=== PATIENT | male | born 1965 | race Caucasian/White ===

== ENCOUNTER 2022-04-28 15:32 | Emergency (ER) | payer OTHER ==
[~2022-04-28] VITALS: Ht 167.6 cm; Wt 59.4 kg
[2022-04-28 15:50] VITALS: BP 104/65
--- NOTE | 2022-04-28 17:05 | NUR ---
56y/o male presents to ED with c/o right leg pain [id number]. Pt reports picking up a big box two weeks ago and feeling pain to the right calf shortly after, 8/10 constant cramping like pain that radiates to right hamstring. Pt reports taking advil and tylenol with mild relief. Upon assessment, no swelling or redness noted to right leg. Pt changed into gown, bed set at lowest position, side rails x1.
[2022-04-28 17:08] LABS: BASOPHILS % (AUTO) 0.7 % (0.0-2.0); EOSINOPHILS # (AUTO) 0.1 K/uL (0-0.4); EOSINOPHILS % (AUTO) 2.8 % (0.0-4.0); HEMATOCRIT 40.2 % (36-52); HEMOGLOBIN 13.7 g/dL (12.0-18.0); LYMPHOCYTES # (AUTO) 1.8 K/uL (2.0-11.5); LYMPHOCYTES % (AUTO) 32.6 % (20.5-51.1); MEAN CORPUSCULAR HEMOGLOBIN 32 pg (27-31); MEAN CORPUSCULAR HGB CONC 34 g/dL (33-37); MEAN CORPUSCULAR VOLUME 93.6 fL (80-94); MONOCYTES # (AUTO) 0.4 K/uL (0.8-1.0); MONOCYTES % (AUTO) 7.3 % (1.7-9.3); NEUTROPHILS # (AUTO) 3.1 K/uL (1.8-7.7); NEUTROPHILS % (AUTO) 56.6 % (42.2-75.2); PLATELET COUNT (AUTO) 251 K/uL (140-450); RED BLOOD CELL COUNT(AUTO) 4.29 MIL/uL (4.20-6.10); RED CELL DISTRIBUTION WIDTH 14.3 % (11.6-13.7); WHITE BLOOD COUNT (AUTO) 5.4 K/uL (4.8-10.8)
[2022-04-28 17:31] LABS: ALBUMIN 3.8 g/dL (3.4-5.0); ANION GAP 13.4 (8-16); CARBON DIOXIDE 25.2 mmol/L (21-32); CREATININE 0.7 mg/dL (0.6-1.3); POTASSIUM 3.6 mmol/L (3.5-5.1); TOTAL BILIRUBIN 0.3 mg/dL (0.0-1.0)
[2022-04-28] MEDS ORDERED: KETOROLAC 30 MG/ML VIAL IM ONE (18:45)
[2022-04-28] MEDS ORDERED: NAPR-1704 PO (18:46)
--- NOTE | 2022-04-28 19:09 | NUR ---
Patient discharged with v/s stable. Written and verbal after care instructions about leg cramps given and explained. Patient alert, oriented and verbalized understanding of instructions. Ambulatory with steady gait. All questions addressed prior to discharge. ID band removed. Patient advised to follow up with PMD. Rx of Naprosyn given. Patient educated on indication of medication including possible reaction and side effects. Opportunity to ask questions provided and answered.
[2022-04-28 19:10] VITALS: BP 117/69
== END 2022-04-28 19:09 | disposition home or self-care (01) ==
LOC: MED 15:32
DX: M62.831 Muscle spasm of calf (principal)
CPT/HCPCS: 36415; 80053; 85025; 85379; 93971; 96372; 99284; J1885; Q0092